=== PATIENT | male | born 1930 | race Caucasian/White ===

== ENCOUNTER 2018-06-23 10:33 | Observation (INO) ==
[2018-06-23] MEDS ORDERED: ASPIRIN 325 MG TABLET PO STA (12:09)
[2018-06-23] MEDS ORDERED: NITROGLYCERIN 2% OINT 1 INCH/GM PACK TOP STA (12:09)
[2018-06-23] MEDS ORDERED: ONDANSETRON 4 MG/2 ML VIAL IV STA (12:09)
[2018-06-23] MEDS ORDERED: FUROSEMIDE 40 MG/4 ML VIAL IV STA (12:10)
[2018-06-23 12:14] LABS: Basophils % 0.4 % (0.0-0.8); Eosinophils % 0.8 % (0.00-10.9); Hematocrit 41.4 VOL% (42.0-52.0); Hemoglobin 12.8 GM/DL (14.0-18.0); Immature Granulocytes % 0.4 %; Immature Granulocytes Absolute 0.02 #; Lymphocytes # 0.7 10*3/uL (1.4-4.0); Lymphocytes % 13.2 % (21.2-54.2); Mean Corpuscular HGB Conc 30.9 GM/DL (32-36); Mean Corpuscular Hemoglobin 28 PG (27-34); Mean Corpuscular Volume 91.6 FL (87-102); Mean Platelet Volume 11.4 FL (9.6-12.0); Monocytes # 0.4 10*3/uL (0.11-0.8); Monocytes % 7.7 % (1.7-12.7); Neutrophils # 3.8 10*3/uL (1.4-7.4); Neutrophils % 77.5 % (38.7-73.9); Platelet Count 150 T/CUMM (130-400); Red Blood Count 4.52 MC/CUMM (3.8-5.5); Red Cell Distribution Width 14.6 % (9.3-17.3); White Blood Count 4.9 T/CUMM (4-12)
[2018-06-23 12:24] LABS: PT Patient Result 10.7 SECS
[2018-06-23 12:30] LABS: Albumin 3.5 G/DL (3.4-5.0); Bilirubin,Total 0.8 MG/DL (0.2-1.0); Calcium 8.5 MG/DL (8.5-10.1); Potassium 4.4 MMOL/L (3.5-5.1); Total Protein 6.9 G/DL (6.4-8.3)
[2018-06-23] MEDS ORDERED: INSULIN REGULAR 100 UNIT/ML SUBCUT STA (12:36)
[2018-06-23] MEDS ORDERED: GLUCAGON 1 MG VIAL IM PRN (13:25)
[2018-06-23] MEDS ORDERED: ACETAMINOPHEN 325 MG TABLET PO PRN (13:25)
[2018-06-23] MEDS ORDERED: DEXTROSE 50% 25 GM/50 ML VIAL IV PRN (13:25)
[2018-06-23] MEDS ORDERED: ONDANSETRON 4 MG/2 ML VIAL IV PRN (13:25)
[2018-06-23] MEDS ORDERED: MAGNESIUM SULF RIDER 4 GM in PREMIX 1 EACH IV PRN (13:28)
[2018-06-23] MEDS ORDERED: MAGNESIUM SULF RIDER 2 GM in PREMIX 1 EACH IV PRN (13:28)
[2018-06-23] MEDS ORDERED: POTASSIUM CHLORIDE 20 MEQ TABLET PO PRN ×2 (13:28)
[2018-06-23] MEDS ORDERED: ALBUTEROL/IPRATROPIUM 3 ML NEB RESP TX PRN (13:33)
[2018-06-23] MEDS ORDERED: BENZONATATE 100 MG CAPSULE PO PRN (13:33)
[2018-06-23] MEDS ORDERED: ALBUTEROL 2.5 MG/3 ML NEB RESP TX PRN (13:33)
[2018-06-23] MEDS: INSULIN REGULAR 100 UNIT/ML SUBCUT SCH ×3 (17:10→23:44)
[2018-06-23] MEDS: INSULIN NPH/REGULAR 70/30 100 UNIT/ML SUBCUT SCH (17:11)
[2018-06-23] MEDS: FUROSEMIDE 20 MG/2 ML VIAL IV SCH (17:36)
[2018-06-23] MEDS: hydrALAZINE 25 MG TABLET PO SCH (20:46)
[2018-06-23] MEDS: FAMOTIDINE 20 MG TABLET PO SCH (20:46)
[2018-06-23] MEDS: SIMVASTATIN 10 MG TABLET PO SCH (20:46)
[2018-06-23] MEDS: DULoxetine 20 MG CAPSULE PO SCH (20:46)
[2018-06-24 04:12] LABS: Basophils % 0.7 % (0.0-0.8); Eosinophils # 0.1 10*3/uL (0.0-0.87); Eosinophils % 1.6 % (0.00-10.9); Hematocrit 37.4 VOL% (42.0-52.0); Hemoglobin 11.7 GM/DL (14.0-18.0); Immature Granulocytes % 0.3 %; Immature Granulocytes Absolute 0.02 #; Lymphocytes # 0.6 10*3/uL (1.4-4.0); Lymphocytes % 10.4 % (21.2-54.2); Mean Corpuscular HGB Conc 31.3 GM/DL (32-36); Mean Corpuscular Hemoglobin 28 PG (27-34); Mean Corpuscular Volume 90.1 FL (87-102); Mean Platelet Volume 10.7 FL (9.6-12.0); Monocytes # 0.5 10*3/uL (0.11-0.8); Monocytes % 7.5 % (1.7-12.7); Neutrophils # 4.9 10*3/uL (1.4-7.4); Neutrophils % 79.5 % (38.7-73.9); Platelet Count 151 T/CUMM (130-400); Red Blood Count 4.15 MC/CUMM (3.8-5.5); Red Cell Distribution Width 14.6 % (9.3-17.3); White Blood Count 6.2 T/CUMM (4-12)
[2018-06-24 04:34] LABS: Calcium 8.2 MG/DL (8.5-10.1); Osmolality,Calculated 285.7 MOS/KG (273-304); Potassium 3.8 MMOL/L (3.5-5.1)
[2018-06-24] MEDS: INSULIN REGULAR 100 UNIT/ML SUBCUT SCH ×4 (08:48→23:25)
[2018-06-24] MEDS: ASPIRIN EC 81 MG TABLET PO SCH (09:10)
[2018-06-24] MEDS: hydrALAZINE 25 MG TABLET PO SCH (09:10)
[2018-06-24] MEDS: TAMSULOSIN 0.4 MG CAPSULE PO SCH (09:10)
[2018-06-24] MEDS: INSULIN NPH/REGULAR 70/30 100 UNIT/ML SUBCUT SCH ×2 (09:10→17:26)
[2018-06-24] MEDS: FUROSEMIDE 20 MG/2 ML VIAL IV SCH ×2 (09:10→18:23)
[2018-06-24] MEDS: FAMOTIDINE 20 MG TABLET PO SCH ×2 (09:10→23:26)
[2018-06-24] MEDS: PANTOPRAZOLE 40 MG TABLET PO SCH (09:11)
[2018-06-24] MEDS: INSULIN GLARGINE 100 UNIT/ML SUBCUT SCH (09:14)
[2018-06-24] MEDS: LINACLOTIDE 145 MCG CAPSULE PO SCH (09:16)
[2018-06-24] MEDS: ISOSORBIDE MONONITRATE 30 MG TABLET PO SCH (09:39)
[2018-06-24] MEDS: ENOXAPARIN 30 MG/0.3 ML SYRINGE SUBCUT SCH (09:40)
[2018-06-24] MEDS: SIMVASTATIN 10 MG TABLET PO SCH (23:25)
[2018-06-24] MEDS: CARVEDILOL 6.25 MG TABLET PO SCH (23:26)
[2018-06-24] MEDS: DULoxetine 20 MG CAPSULE PO SCH (23:26)
[2018-06-25 05:33] LABS: Calcium 8.3 MG/DL (8.5-10.1); Osmolality,Calculated 280.5 MOS/KG (273-304); Potassium 3.4 MMOL/L (3.5-5.1)
[2018-06-25] MEDS: INSULIN REGULAR 100 UNIT/ML SUBCUT SCH ×2 (07:52→12:57)
[2018-06-25] MEDS: TAMSULOSIN 0.4 MG CAPSULE PO SCH (09:45)
[2018-06-25] MEDS: ISOSORBIDE MONONITRATE 30 MG TABLET PO SCH (09:45)
[2018-06-25] MEDS: FAMOTIDINE 20 MG TABLET PO SCH (09:45)
[2018-06-25] MEDS: ASPIRIN EC 81 MG TABLET PO SCH (09:45)
[2018-06-25] MEDS: LINACLOTIDE 145 MCG CAPSULE PO SCH (09:46)
[2018-06-25] MEDS: CARVEDILOL 6.25 MG TABLET PO SCH (09:46)
[2018-06-25] MEDS: PANTOPRAZOLE 40 MG TABLET PO SCH (09:46)
[2018-06-25] MEDS: INSULIN NPH/REGULAR 70/30 100 UNIT/ML SUBCUT SCH (09:49)
[2018-06-25] MEDS: FUROSEMIDE 20 MG/2 ML VIAL IV SCH ×2 (09:50→15:00)
[2018-06-25] MEDS: INSULIN GLARGINE 100 UNIT/ML SUBCUT SCH (09:50)
[2018-06-25] MEDS: ENOXAPARIN 30 MG/0.3 ML SYRINGE SUBCUT SCH (10:30)
[2018-06-25 12:29] VITALS: BP 117/58
== END 2018-06-25 15:33 | disposition home or self-care (01) ==
LOC: N.EDINP 10:33 → N.ED 10:33 → N.TELES 14:00
PROVIDERS: ADMIT Internal Medicine; ATTEND Internal Medicine

== ENCOUNTER 2018-12-09 08:45 | Inpatient (IN) ==
[2018-12-09] MEDS ORDERED: ONDANSETRON 4 MG/2 ML VIAL IV STA ×2 (09:17→12:15)
[2018-12-09] MEDS ORDERED: MORPHINE 4 MG/1 ML VIAL IV STA ×2 (09:17→12:15)
[2018-12-09 09:48] LABS: Basophils % 0.3 % (0.0-0.8); Eosinophils % 0.2 % (0.00-10.9); Hematocrit 46.2 VOL% (42.0-52.0); Hemoglobin 14.2 GM/DL (14.0-18.0); Immature Granulocytes % 0.5 %; Immature Granulocytes Absolute 0.07 #; Lymphocytes # 0.6 10*3/uL (1.4-4.0); Lymphocytes % 4.7 % (21.2-54.2); Mean Corpuscular HGB Conc 30.7 GM/DL (32-36); Mean Corpuscular Volume 95.5 FL (87-102); Mean Platelet Volume 10.2 FL (9.6-12.0); Monocytes % 4.6 % (1.7-12.7); Neutrophils % 89.7 % (38.7-73.9); Platelet Count 176 T/CUMM (130-400); Red Blood Count 4.84 MC/CUMM (3.8-5.5); Red Cell Distribution Width 15.1 % (9.3-17.3); White Blood Count 13.2 T/CUMM (4-12)
[2018-12-09 10:09] LABS: Eosinophils 1 % (0-10); Hypochromasia 1+; Lymphocytes 8 % (20-55); Platelet Estimate Adequate; Segmented Neutrophils 87 % (50-85); Total Cells Counted 100
[2018-12-09 10:11] LABS: Albumin 3.2 G/DL (3.4-5.0); Bilirubin,Total 0.8 MG/DL (0.2-1.0); Calcium 8.9 MG/DL (8.5-10.1); Osmolality,Calculated 282.7 MOS/KG (273-304); Total Protein 6.9 G/DL (6.4-8.3)
[2018-12-09 10:34] LABS: PT Patient Result 10.8 SECS
[2018-12-09] MEDS ORDERED: ALBUTEROL 2.5 MG/3 ML NEB RESP TX STA (10:53)
[2018-12-09] MEDS ORDERED: ONDANSETRON 4 MG/2 ML VIAL IV PRN (13:35)
[2018-12-09] MEDS ORDERED: ACETAMINOPHEN 325 MG TABLET PO PRN (13:35)
[2018-12-09] MEDS ORDERED: ENOXAPARIN 40 MG/0.4 ML SYRINGE SUBCUT SCH (14:00)
[2018-12-09] MEDS ORDERED: GLUCAGON 1 MG VIAL IM PRN (14:20)
[2018-12-09] MEDS ORDERED: DEXTROSE 50% 25 GM/50 ML VIAL IV PRN (14:20)
[2018-12-09 14:35] LABS: Risk Ratio 1.66; Thyroid Stimulating Hormone 2.55 uIU/ml (0.358-3.74); VLDL CHOLESTEROL 14.4 MG/DL
[2018-12-09] MEDS ORDERED: ALBUTEROL 2.5 MG/3 ML NEB RESP TX PRN (15:30)
[2018-12-09 15:34] LABS: Troponin I < 0.015 NG/ML (0.00-0.045)
[2018-12-09] MEDS: chlordiazePOXIDE 10 MG CAPSULE PO SCH ×2 (16:31→20:49)
[2018-12-09] MEDS: INSULIN LISPRO 100 UNIT/ML SUBCUT SCH ×2 (16:34→20:50)
[2018-12-09 18:13] LABS: PT Patient Result 11.1 SECS
[2018-12-09 18:18] LABS: Troponin I < 0.015 NG/ML (0.00-0.045)
[2018-12-09] MEDS ORDERED: ATORVASTATIN 40 MG TABLET PO SCH (21:00)
[2018-12-10 04:43] LABS: Basophils # 0.1 10*3/uL (0.0-0.2); Basophils % 0.4 % (0.0-0.8); Eosinophils # 0.1 10*3/uL (0.0-0.87); Eosinophils % 1.1 % (0.00-10.9); Hematocrit 41.2 VOL% (42.0-52.0); Hemoglobin 12.6 GM/DL (14.0-18.0); Immature Granulocytes % 0.5 %; Immature Granulocytes Absolute 0.06 #; Mean Corpuscular HGB Conc 30.6 GM/DL (32-36); Mean Corpuscular Volume 97.2 FL (87-102); Mean Platelet Volume 10.1 FL (9.6-12.0); Monocytes % 6.6 % (1.7-12.7); Neutrophils % 82.4 % (38.7-73.9); Platelet Count 168 T/CUMM (130-400); Red Blood Count 4.24 MC/CUMM (3.8-5.5); Red Cell Distribution Width 15.2 % (9.3-17.3); White Blood Count 11.2 T/CUMM (4-12)
[2018-12-10 05:22] LABS: Albumin 2.7 G/DL (3.4-5.0); Bilirubin,Total 0.6 MG/DL (0.2-1.0); Calcium 8.9 MG/DL (8.5-10.1); Osmolality,Calculated 283.5 MOS/KG (273-304); Total Protein 6.2 G/DL (6.4-8.3)
[2018-12-10] MEDS: MORPHINE 4 MG/1 ML VIAL IV PRN (07:09)
[2018-12-10] MEDS ORDERED: ASPIRIN EC 81 MG TABLET PO SCH (09:00)
[2018-12-10] MEDS: INSULIN LISPRO 100 UNIT/ML SUBCUT SCH ×4 (10:52→20:59)
[2018-12-10] MEDS: INSULIN GLARGINE 100 UNIT/ML SUBCUT SCH (12:00)
[2018-12-10] MEDS: chlordiazePOXIDE 10 MG CAPSULE PO SCH ×3 (13:57→20:59)
[2018-12-10] MEDS: PANTOPRAZOLE 40 MG TABLET PO SCH (13:58)
[2018-12-10] MEDS: ALBUTEROL/IPRATROPIUM 3 ML NEB RESP TX SCH ×2 (19:17→23:20)
[2018-12-11] MEDS: ALBUTEROL/IPRATROPIUM 3 ML NEB RESP TX SCH ×6 (03:00→23:25)
[2018-12-11 05:57] LABS: Albumin 2.8 G/DL (3.4-5.0); Bilirubin,Total 1.3 MG/DL (0.2-1.0); Calcium 9.3 MG/DL (8.5-10.1); Osmolality,Calculated 287.4 MOS/KG (273-304); Total Protein 6.4 G/DL (6.4-8.3)
[2018-12-11 06:05] LABS: Carcinoembryonic Antigen 56.1 NG/ML (0.0-5.0); Prostate Specific Antigen Diag < 0.1 NG/ML (0-4)
[2018-12-11 06:26] LABS: Immunoglobulin A 135 MG/DL (70-400); Immunoglobulin G 1060 MG/DL (700-1600); Immunoglobulin M < 21 MG/DL (40-230)
[2018-12-11 06:39] LABS: Basophils % 0.3 % (0.0-0.8); Eosinophils % 0.3 % (0.00-10.9); Hematocrit 41.3 VOL% (42.0-52.0); Hemoglobin 12.8 GM/DL (14.0-18.0); Immature Granulocytes % 0.3 %; Immature Granulocytes Absolute 0.04 #; Lymphocytes # 0.8 10*3/uL (1.4-4.0); Lymphocytes % 6.5 % (21.2-54.2); Mean Corpuscular Volume 96.7 FL (87-102); Mean Platelet Volume 10.8 FL (9.6-12.0); Monocytes % 5.5 % (1.7-12.7); Neutrophils % 87.1 % (38.7-73.9); Platelet Count 163 T/CUMM (130-400); Red Blood Count 4.27 MC/CUMM (3.8-5.5); Red Cell Distribution Width 15.2 % (9.3-17.3); White Blood Count 11.9 T/CUMM (4-12)
[2018-12-11 06:46] LABS: Total Protein (Chem) 6.4 G/DL (6.4-8.3)
[2018-12-11] MEDS: FLUTICASONE 50 MCG NASAL SPRAY 16 GM BOTTLE BOTH NARES SCH (09:01)
[2018-12-11] MEDS: chlordiazePOXIDE 10 MG CAPSULE PO SCH ×3 (09:07→21:28)
[2018-12-11] MEDS: INSULIN LISPRO 100 UNIT/ML SUBCUT SCH ×4 (09:07→21:28)
[2018-12-11] MEDS: INSULIN GLARGINE 100 UNIT/ML SUBCUT SCH (09:07)
[2018-12-11] MEDS: PANTOPRAZOLE 40 MG TABLET PO SCH (09:08)
[2018-12-11 09:19] LABS: Albumin (SPE) 3.4 G/DL (3.2-5.3); Albumin (SPE) Rel % 53.3 %; Alpha 1 (SPE) 0.2 G/DL (0.1-0.4); Alpha 1 (SPE) Rel % 3.4 %; Alpha 2 (SPE) Rel % 15.3 %; Beta (SPE) 0.8 G/DL (0.5-1.1); Beta (SPE) Rel % 11.8 %
[2018-12-11 09:28] LABS: Gamma (SPE) Rel % 16.2 %
[2018-12-11] MEDS ORDERED: TUBERCULIN SKIN TEST 0.1 ML SYRINGE INTRADERM ONE (09:36)
[2018-12-12] MEDS: ALBUTEROL/IPRATROPIUM 3 ML NEB RESP TX SCH ×6 (03:45→23:25)
[2018-12-12 05:46] LABS: Basophils % 0.2 % (0.0-0.8); Eosinophils # 0.1 10*3/uL (0.0-0.87); Eosinophils % 0.6 % (0.00-10.9); Hematocrit 42.2 VOL% (42.0-52.0); Hemoglobin 12.5 GM/DL (14.0-18.0); Immature Granulocytes % 0.5 %; Immature Granulocytes Absolute 0.06 #; Lymphocytes # 0.8 10*3/uL (1.4-4.0); Lymphocytes % 6.3 % (21.2-54.2); Mean Corpuscular HGB Conc 29.6 GM/DL (32-36); Mean Platelet Volume 10.7 FL (9.6-12.0); Neutrophils % 87.4 % (38.7-73.9); Platelet Count 148 T/CUMM (130-400); Red Blood Count 4.22 MC/CUMM (3.8-5.5); Red Cell Distribution Width 15.3 % (9.3-17.3); White Blood Count 13.1 T/CUMM (4-12)
[2018-12-12 06:14] LABS: Albumin 2.7 G/DL (3.4-5.0); Bilirubin,Total 0.6 MG/DL (0.2-1.0); Calcium 9.2 MG/DL (8.5-10.1); Osmolality,Calculated 291.1 MOS/KG (273-304); Total Protein 6.3 G/DL (6.4-8.3)
[2018-12-12] MEDS: chlordiazePOXIDE 10 MG CAPSULE PO SCH ×3 (08:19→21:42)
[2018-12-12] MEDS: PANTOPRAZOLE 40 MG TABLET PO SCH (08:19)
[2018-12-12] MEDS: FLUTICASONE 50 MCG NASAL SPRAY 16 GM BOTTLE BOTH NARES SCH ×2 (08:19→08:20)
[2018-12-12] MEDS: INSULIN GLARGINE 100 UNIT/ML SUBCUT SCH (08:20)
[2018-12-12] MEDS: INSULIN LISPRO 100 UNIT/ML SUBCUT SCH ×4 (08:20→21:34)
[2018-12-12 10:31] LABS: Immuno Free Light Chain Kappa 10.18 MG/DL (0.33-1.94); Immuno Free Light Chain Lambda 2.03 MG/DL (0.57-2.63); Immuno Free Light Chain Ratio 5.01 MG/DL (0.26-1.65)
[2018-12-12] MEDS: DOCUSATE SODIUM 100 MG CAPSULE PO PRN (11:14)
[2018-12-12] MEDS ORDERED: ONDANSETRON 4 MG/2 ML VIAL IV PRN (11:55)
[2018-12-12] MEDS: DICYCLOMINE 20 MG TABLET PO SCH ×4 (13:20→21:43)
[2018-12-13] MEDS: ALBUTEROL/IPRATROPIUM 3 ML NEB RESP TX SCH ×6 (02:32→23:54)
[2018-12-13 06:02] LABS: Basophils # 0.1 10*3/uL (0.0-0.2); Basophils % 0.4 % (0.0-0.8); Eosinophils # 0.1 10*3/uL (0.0-0.87); Eosinophils % 0.5 % (0.00-10.9); Hematocrit 41.5 VOL% (42.0-52.0); Hemoglobin 12.5 GM/DL (14.0-18.0); Immature Granulocytes % 0.6 %; Immature Granulocytes Absolute 0.08 #; Lymphocytes # 0.5 10*3/uL (1.4-4.0); Lymphocytes % 3.4 % (21.2-54.2); Mean Corpuscular HGB Conc 30.1 GM/DL (32-36); Mean Corpuscular Volume 98.1 FL (87-102); Mean Platelet Volume 10.7 FL (9.6-12.0); Monocytes % 4.2 % (1.7-12.7); Neutrophils % 90.9 % (38.7-73.9); Platelet Count 148 T/CUMM (130-400); Red Blood Count 4.23 MC/CUMM (3.8-5.5); Red Cell Distribution Width 15.4 % (9.3-17.3); White Blood Count 14.1 T/CUMM (4-12)
[2018-12-13 06:35] LABS: Albumin 2.6 G/DL (3.4-5.0); Bilirubin,Total 0.7 MG/DL (0.2-1.0); Osmolality,Calculated 284.7 MOS/KG (273-304); Total Protein 6.4 G/DL (6.4-8.3)
[2018-12-13 07:23] LABS: Band Neutrophils 26 % (0-10); Lymphocytes 1 % (20-55); Platelet Estimate Adequate; Segmented Neutrophils 69 % (50-85); Total Cells Counted 100
[2018-12-13 07:24] LABS: Anisocytosis Slight; Macrocytosis Slight
[2018-12-13] MEDS: INSULIN LISPRO 100 UNIT/ML SUBCUT SCH ×4 (09:32→20:44)
[2018-12-13] MEDS: DICYCLOMINE 20 MG TABLET PO SCH ×4 (09:33→22:14)
[2018-12-13] MEDS: PANTOPRAZOLE 40 MG TABLET PO SCH (09:33)
[2018-12-13] MEDS: INSULIN GLARGINE 100 UNIT/ML SUBCUT SCH (09:33)
[2018-12-13] MEDS: chlordiazePOXIDE 10 MG CAPSULE PO SCH ×3 (09:33→20:43)
[2018-12-13] MEDS: FLUTICASONE 50 MCG NASAL SPRAY 16 GM BOTTLE BOTH NARES SCH (09:33)
[2018-12-13] MEDS: MORPHINE 4 MG/1 ML VIAL IV PRN (21:02)
[2018-12-14] MEDS: MORPHINE 4 MG/1 ML VIAL IV PRN (02:57)
[2018-12-14] MEDS: ALBUTEROL/IPRATROPIUM 3 ML NEB RESP TX SCH ×6 (04:00→23:00)
[2018-12-14 04:17] LABS: Albumin 2.5 G/DL (3.4-5.0); Bilirubin,Total 0.9 MG/DL (0.2-1.0); Calcium 9.1 MG/DL (8.5-10.1); Osmolality,Calculated 282.7 MOS/KG (273-304); Total Protein 6.4 G/DL (6.4-8.3)
[2018-12-14 06:14] LABS: Albumin 2.6 G/DL (3.4-5.0); Bilirubin,Total 0.4 MG/DL (0.2-1.0); Calcium 9.3 MG/DL (8.5-10.1); Osmolality,Calculated 287.5 MOS/KG (273-304); Total Protein 6.3 G/DL (6.4-8.3)
[2018-12-14 06:25] LABS: Basophils % 0.3 % (0.0-0.8); Eosinophils # 0.2 10*3/uL (0.0-0.87); Eosinophils % 1.2 % (0.00-10.9); Hematocrit 41.8 VOL% (42.0-52.0); Immature Granulocytes % 0.5 %; Immature Granulocytes Absolute 0.06 #; Lymphocytes # 0.8 10*3/uL (1.4-4.0); Lymphocytes % 6.1 % (21.2-54.2); Mean Corpuscular HGB Conc 30.1 GM/DL (32-36); Mean Corpuscular Volume 98.1 FL (87-102); Mean Platelet Volume 10.4 FL (9.6-12.0); Monocytes % 4.5 % (1.7-12.7); Neutrophils % 87.4 % (38.7-73.9); Platelet Count 147 T/CUMM (130-400); Red Blood Count 4.26 MC/CUMM (3.8-5.5); Red Cell Distribution Width 15.7 % (9.3-17.3); White Blood Count 12.8 T/CUMM (4-12)
[2018-12-14 06:26] LABS: Hemoglobin 12.6 GM/DL (14.0-18.0)
[2018-12-14] MEDS: INSULIN LISPRO 100 UNIT/ML SUBCUT SCH ×4 (07:54→20:18)
[2018-12-14] MEDS: INSULIN GLARGINE 100 UNIT/ML SUBCUT SCH (08:01)
[2018-12-14] MEDS: FLUTICASONE 50 MCG NASAL SPRAY 16 GM BOTTLE BOTH NARES SCH (09:00)
[2018-12-14] MEDS: PANTOPRAZOLE 40 MG TABLET PO SCH (09:01)
[2018-12-14] MEDS: chlordiazePOXIDE 10 MG CAPSULE PO SCH ×3 (09:01→20:18)
[2018-12-14] MEDS: DICYCLOMINE 20 MG TABLET PO SCH (09:02)
[2018-12-14] MEDS: DOCUSATE SODIUM 100 MG CAPSULE PO PRN (20:30)
[2018-12-15] MEDS: MORPHINE 4 MG/1 ML VIAL IV PRN (01:02)
[2018-12-15] MEDS: ALBUTEROL/IPRATROPIUM 3 ML NEB RESP TX SCH ×3 (02:20→10:23)
[2018-12-15 07:58] VITALS: BP 151/60
[2018-12-15] MEDS: chlordiazePOXIDE 10 MG CAPSULE PO SCH (09:01)
[2018-12-15] MEDS: PANTOPRAZOLE 40 MG TABLET PO SCH (09:01)
[2018-12-15] MEDS: INSULIN GLARGINE 100 UNIT/ML SUBCUT SCH (09:01)
[2018-12-15] MEDS: INSULIN LISPRO 100 UNIT/ML SUBCUT SCH (09:02)
[2018-12-15] MEDS: FLUTICASONE 50 MCG NASAL SPRAY 16 GM BOTTLE BOTH NARES SCH (09:03)
== END 2018-12-15 11:15 | DRG 543 ==
LOC: EDBD → EDUNIT# → N.EDINP 08:45 → N.ED 08:45 → N.EDINP 14:10 → N.2E 14:43 → SUATTDRO 14:44
PROVIDERS: ADMIT Internal Medicine; ATTEND Internal Medicine